=== PATIENT | male | born 1965 | race Hispanic/Latino ===

== ENCOUNTER 2024-01-25 16:56 | Inpatient (IN) | payer OTHER ==
[2024-01-25] VITALS (19 sets, daily range): BP systolic 116–147; BP diastolic 62–89; PULSE 72–92; RESP 13–22; O2SAT 96
[~2024-01-25] VITALS: Ht 160 cm; Wt 74.8 kg
[2024-01-25] MEDS ORDERED: LIDOCAINE HCL 400MG/20ML VIAL ONE (16:59)
[2024-01-25] MEDS ORDERED: IOHEXOL 350 MG/ML 100ML INFUS..BTL IV ONE ×2 (17:00→18:35)
[2024-01-25] MEDS ORDERED: NITROGLYCERIN 50MG VIAL ONE (17:01)
[2024-01-25] MEDS ORDERED: BIVALIRUDIN 250 MG/VIAL IV ONE (17:05)
[2024-01-25] MEDS ORDERED: ATROPINE 1MG SYG IVP ONE (17:05)
[2024-01-25] MEDS ORDERED: DOPAMINE HCL 400 MG/D5%-WATER 0 ML IV ONE (17:06)
[2024-01-25] MEDS ORDERED: MIDAZOLAM HCL 1 MG/ML 2ML VIAL ONE ×2 (17:25→17:33)
[2024-01-25] MEDS ORDERED: FENTANYL CITRATE PF 50 MCG/1 ML 2ML VIAL ONE (17:25)
[2024-01-25] MEDS ORDERED: HEPARIN 10,000 UNIT/10ML (1,000 UNIT/ML) VIAL ONE (17:46)
[2024-01-25] MEDS ORDERED: GLUCAGON 1MG KIT 1 MG ML IM PRN (19:30)
[2024-01-25] MEDS ORDERED: NITROGLYCERIN 0.4 MG SL TAB SL PRN (19:30)
[2024-01-25] MEDS ORDERED: DEXTROSE 50%-WATER 50 ML DISP.SYRIN IV PRN (19:30)
[2024-01-25] MEDS: 0.9%NACL 1000ML 1,000 ML IV SCH (19:31)
[2024-01-25] MEDS ORDERED: ACETAMINOPHEN 325 MG TAB PO PRN (22:00)
[2024-01-25] MEDS: INSULIN HUMULIN R 100 UNIT/ML 3ML SQ SCH (22:00)
[2024-01-25] MEDS: CARVEDILOL 6.25 MG TABLET PO SCH (22:00)
[2024-01-25] MEDS: ATORVASTATIN 40 MG TABLET PO SCH (22:00)
[2024-01-25] MEDS: ACETAMINOPHEN 325 MG TAB ONE (22:02)
[2024-01-26] VITALS (72 sets, daily range): BP systolic 113–159; BP diastolic 57–109; PULSE 66–87; RESP 11–28; O2SAT 97–98
[2024-01-26] MEDS ORDERED: LACTULOSE 20 GM/30 ML UDCUP PO PRN (01:00)
[2024-01-26] MEDS ORDERED: ACETAMINOPHEN 650 MG SUPPOSITORY RC PRN (01:00)
[2024-01-26] MEDS ORDERED: IPRATROPIUM 0.5 MG/2.5 ML INH IH PRN (01:00)
[2024-01-26] MEDS ORDERED: DOCUSATE SODIUM 100 MG CAP PO PRN (01:00)
[2024-01-26] MEDS ORDERED: ACETAMINOPHEN 325 MG TAB PO PRN (01:00)
[2024-01-26] MEDS ORDERED: ONDANSETRON 4MG INJ IVP PRN (01:00)
[2024-01-26 06:19] LABS: BASOPHILS # (AUTO) 0.05 K/uL (0.00-0.20); BASOPHILS % (AUTO) 0.4 % (0.0-5.0); EOSINOPHILS # (AUTO) 0.11 K/uL (0.00-0.70); EOSINOPHILS % (AUTO) 0.8 % (0.0-8.0); HEMATOCRIT 42.7 % (42-54); IMMATURE GRANULOCYTE ABSOLUTE 0.07 K/uL (0-1); LYMPHOCYTES # (AUTO) 2.5 K/uL (1.0-4.8); LYMPHOCYTES % (AUTO) 17.8 % (21.0-51.0); MEAN CORPUSCULAR HEMOGLOBIN 29.2 pg (27.0-33.0); MEAN CORPUSCULAR VOLUME 85.9 fL (79-99); MONOCYTES # (AUTO) 1.2 K/uL (0.1-1.0); MONOCYTES % (AUTO) 8.4 % (3.0-13.0); NEUTROPHILS % (AUTO) 72.1 % (40.0-77.0); PLATELET COUNT (AUTO) 271 K/uL (130-400); RED BLOOD CELL COUNT(AUTO) 4.97 MIL/uL (4.50-6.20); RED CELL DISTRIBUTION WIDTH 13.2 % (11.0-15.5); WHITE BLOOD COUNT (AUTO) 13.8 K/uL (4.8-10.8)
[2024-01-26 06:40] LABS: HEMOGLOBIN A1C 10.3 % (4.0-6.0)
[2024-01-26] MEDS: INSULIN HUMULIN R 100 UNIT/ML 3ML SQ SCH (06:42)
[2024-01-26 06:59] LABS: ALBUMIN 3.3 g/dL (3.5-5.0); BILIRUBIN,TOTAL 0.6 mg/dL (0.2-1.0); CREATININE 0.7 mg/dL (0.5-1.3); MAGNESIUM 1.7 mg/dL (1.80-2.40); PHOSPHORUS 3.8 mg/dL (2.5-4.9); POTASSIUM 3.8 mmol/L (3.5-5.1); THYROID STIMULATING HORMONE 1.15 uIU/mL (0.36-3.74); TOTAL PROTEIN, SERUM 6.5 g/dL (6.0-8.3)
[2024-01-26] MEDS: ASPIRIN 81MG CHEW TAB PO SCH (08:35)
[2024-01-26] MEDS: FAMOTIDINE 20MG TAB PO SCH (08:35)
[2024-01-26] MEDS: CLOPIDOGREL 75MG TAB PO SCH (08:37)
[2024-01-26] MEDS: LOSARTAN 50 MG TABLET PO SCH (08:37)
[2024-01-26 12:44] LABS: AMPHET/METH SCREEN,URINE NEGATIVE (NEGATIVE); BARBITURATE SCREEN, URINE NEGATIVE (NEGATIVE); BENZODIAZEPINES SCREEN,URINE POSITIVE (NEGATIVE); CANNABINOID SCREEN,URINE NEGATIVE (NEGATIVE); COCAINE SCREEN,URINE NEGATIVE (NEGATIVE); OPIATE SCREEN,URINE NEGATIVE (NEGATIVE); PHENCYCLIDINE SCREEN,URINE NEGATIVE (NEGATIVE)
[2024-01-26] MEDS: INSULIN GLARGINE 100 UNITS/ML 10 ML VIAL SQ SCH (13:00)
[2024-01-26] MEDS ORDERED: POTASSIUM CHLORIDE 10MEQ/100ML 100 ML IV PRN ×2 (15:00)
[2024-01-26] MEDS ORDERED: TRAMADOL HCL 50 MG TABLET PO PRN (15:00)
[2024-01-26] MEDS ORDERED: POTASSIUM CHLORIDE 10% ELIXIR 20 MEQ/15 ML UDCUP PO PRN (15:00)
[2024-01-27] VITALS: BP 132/67; PULSE 80; RESP 20
[2024-01-27 03:54] VITALS: BP 128/74; PULSE 76; RESP 21
[2024-01-27 04:27] LABS: BASOPHILS # (AUTO) 0.05 K/uL (0.00-0.20); BASOPHILS % (AUTO) 0.4 % (0.0-5.0); EOSINOPHILS # (AUTO) 0.19 K/uL (0.00-0.70); EOSINOPHILS % (AUTO) 1.6 % (0.0-8.0); HEMATOCRIT 40.4 % (42-54); IMMATURE GRANULOCYTE ABSOLUTE 0.05 K/uL (0-1); LYMPHOCYTES # (AUTO) 3.8 K/uL (1.0-4.8); LYMPHOCYTES % (AUTO) 31.5 % (21.0-51.0); MEAN CORPUSCULAR HEMOGLOBIN 29.7 pg (27.0-33.0); MEAN CORPUSCULAR HGB CONC 33.7 g/dL (32.0-36.0); MEAN CORPUSCULAR VOLUME 88.2 fL (79-99); MONOCYTES # (AUTO) 1.1 K/uL (0.1-1.0); MONOCYTES % (AUTO) 9.5 % (3.0-13.0); NEUTROPHILS # (AUTO) 6.8 K/uL (1.8-7.7); NEUTROPHILS % (AUTO) 56.6 % (40.0-77.0); PLATELET COUNT (AUTO) 239 K/uL (130-400); RED BLOOD CELL COUNT(AUTO) 4.58 MIL/uL (4.50-6.20); RED CELL DISTRIBUTION WIDTH 13.1 % (11.0-15.5)
[2024-01-27 04:48] LABS: CREATININE 0.6 mg/dL (0.5-1.3); MAGNESIUM 1.8 mg/dL (1.80-2.40); PHOSPHORUS 3.8 mg/dL (2.5-4.9); POTASSIUM 3.5 mmol/L (3.5-5.1)
[2024-01-27] MEDS: MAGNESIUM 2GM PREMIX 50ML 50 ML IV PRN (06:16)
[2024-01-27] MEDS: KCL 20 MEQ ERTAB PO PRN (06:17)
[2024-01-27] MEDS ORDERED: POTASSIUM CHLORIDE 10MEQ SR TAB PO PRN (07:30)
[2024-01-27] MEDS ORDERED: CLOP-31 PO (07:40)
[2024-01-27] MEDS ORDERED: CARV12.580 PO (07:40)
[2024-01-27] MEDS ORDERED: LOSA-420 PO (07:40)
[2024-01-27] MEDS ORDERED: ATOR40TA69 PO (07:40)
[2024-01-27] MEDS ORDERED: ASPI-1005 PO (07:40)
[2024-01-27] MEDS ORDERED: METF-444 PO (07:51)
[2024-01-27 08:18] VITALS: BP 114/75; PULSE 79; RESP 18
[2024-01-27 08:20] VITALS: O2SAT 96
[2024-01-27] MEDS ORDERED: LOSARTAN 25 MG TABLET PO SCH (09:00)
[2024-01-27 09:05] VITALS: BP 114/75
[2024-01-27] MEDS: CARVEDILOL 12.5 MG TABLET PO SCH (09:05)
[2024-01-27] MEDS: LOSARTAN 100 MG TABLET PO SCH (09:06)
== END 2024-01-27 10:20 | disposition home or self-care (01) | DRG 322 ==
LOC: EDH 16:56 → 2BH 16:57 → 2DH 01-26 22:24
PROVIDERS: ADMIT Internal Medicine Critical Care Medicine; ATTEND Internal Medicine Critical Care Medicine
PROC: B211YZZ Fluoroscopy of Multiple Coronary Arteries using Other Contrast (ICD-10-PCS; principal; 2024-01-25)
PROC: 027036Z Dilation of Coronary Artery, One Artery with Three Drug-eluting Intraluminal Devices, Percutaneous Approach (ICD-10-PCS; 2024-01-25)
PROC: 02C03ZZ Extirpation of Matter from Coronary Artery, One Artery, Percutaneous Approach (ICD-10-PCS; 2024-01-25)
DX: I21.09 ST elevation (STEMI) myocardial infarction involving other coronary artery of anterior wall (principal); E11.65 Type 2 diabetes mellitus with hyperglycemia; E78.00 Pure hypercholesterolemia, unspecified; I10 Essential (primary) hypertension; E66.9 Obesity, unspecified; E83.42 Hypomagnesemia; D72.829 Elevated white blood cell count, unspecified; I16.0 Hypertensive urgency; F17.210 Nicotine dependence, cigarettes, uncomplicated; I25.10 Atherosclerotic heart disease of native coronary artery without angina pectoris; Z87.730 Personal history of (corrected) cleft lip and palate; Z83.3 Family history of diabetes mellitus; Z82.49 Family history of ischemic heart disease and other diseases of the circulatory system; Z79.02 Long term (current) use of antithrombotics/antiplatelets; Z79.82 Long term (current) use of aspirin; Z98.61 Coronary angioplasty status; Z79.899 Other long term (current) drug therapy; Z68.29 Body mass index [BMI] 29.0-29.9, adult
CPT/HCPCS: 36415; 71045; 76376; 80048; 80053; 80305; 82948; 83036; 83735; 83880; 84100; 84443; 84484; 85025; 85347; 92973; 93005; 93306; 93356; 93454; 94664; 99156; 99157; C1769; C1887; C1894; C9600; C9606; G0378; J0461; J0583; J1265; J1644; J1815; J2250; J3010; J3475; J3490; Q9967; C1725; C1874; Q9965